=== PATIENT | male | born 1975 | race Caucasian/White ===

== ENCOUNTER 2021-02-14 10:39 | Inpatient (IN) ==
[2021-02-14] MEDS ORDERED: KETOROLAC 30 MG/ML VIAL IV ONE (11:17)
[2021-02-14] MEDS ORDERED: SODIUM CHLORIDE 0.9% 1000ML 2,000 ML IV ONE (11:17)
[2021-02-14] MEDS ORDERED: dexAMETHasone**PF** 10 MG/ML VIAL IV ONE (11:17)
[2021-02-14] MEDS ORDERED: ACETAMINOPHEN 500 MG TAB PO STA (11:17)
[2021-02-14] MEDS ORDERED: ALBUT/IPRATROP 3MG/0.5MG NEB 3 ML VIAL NEB STA (11:17)
[2021-02-14 11:27] LABS: Hemoglobin 15.9 g/dL (14.0-18.0); Immature Granulocytes # (auto) 0.01 K/uL (0.00-0.02); Immature Granulocytes % (auto) 0.2 %; Lymphocytes # (auto) 0.53 K/uL (1.2-3.4); Lymphocytes % (auto) 12.4 %; Mean Corpuscular Hemoglobin 30.1 pg (25-34); Mean Corpuscular Hgb Conc 35.3 g/dL (32-36); Mean Corpuscular Volume 85.1 fL (80-100); Mean Platelet Volume 10.5 fL (7.4-10.4); Monocytes % (auto) 4.7 %; Neutrophils # (auto) 3.55 K/uL (1.4-6.5); Neutrophils % (auto) 82.7 %; Platelet Count 147 K/uL (130-400); RDW Coefficient of Variation 12.3 % (11.5-14.5); RDW Standard Deviation 38.3 fL (36.4-46.3); Red Blood Count 5.29 M/uL (4.7-6.1); White Blood Count 4.29 K/uL (4.8-10.8)
[2021-02-14 11:37] LABS: Prothrombin Time 10.4 Seconds (9.0-12.0)
--- NOTE | 2021-02-14 11:37 | Emergency Department Note ---
History of Present Illness General Chief complaint: Shortness of Breath/Dyspnea Stated complaint: SOB, COVID + History of Present Illness This patient is a pleasant 45-year-old male who presents the emergency depa rtment for evaluation of cough, body aches and shortness of breath over the last week. The patient tested positive for Covid 6 days ago. He is currently incarcerated. He denies any sore throat, severe headache, neck pain, nausea or vomiting. They have been giving him Tylenol with minimal relief of his symptoms. The patient reports an underlying diagnosis of asthma. Home Medications Medication Instructions Recorded Confirmed Type amlodipine 10 mg tablet 10 mg PO DAILY 02/14/21 02/14/21 History atorvastatin 10 mg tablet 10 mg PO HS 02/14/21 02/14/21 History bupropion HCl 75 mg tablet 150 mg PO HS 02/14/21 02/14/21 History cholecalciferol (vitamin D3) 25 25 mcg PO DAILY 02/14/21 02/14/21 History mcg (1,000 unit) tablet (Vitamin D3) diphenhydramine HCl 25 mg capsule 25 mg PO HS 02/14/21 02/14/21 History diphenhydramine HCl 50 mg capsule 50 mg PO HS 02/14/21 02/14/21 History haloperidol 2 mg tablet 2 mg PO HS 02/14/21 02/14/21 History mirtazapine 30 mg tablet 30 mg PO HS 02/14/21 02/14/21 History prazosin 1 mg capsule 3 mg PO HS 02/14/21 02/14/21 History zinc 220 mg PO BID 02/14/21 02/14/21 History Allergies Allergy/AdvReac Type Severity Reaction Status Date / Time No Known Allergies Allergy Unverified 02/14/21 16:09 Past Med/Surg History Medical History Asthma Social History Smoking Status: Never smoker Feels Safe at Home: Yes Review of Systems A total of 10 systems reviewed and were otherwise negative Physical Exam Vital Signs Vital Signs - 24 hr 02/14/21 10:49 02/14/21 10:50 02/14/21 11:00 Temperature 38.8 C H Temperature Source Oral Pulse Rate 100 H 98 H 98 H Pulse Rate from SpO2 Sensor 99 H 98 H Respiratory Rate 28 H 29 H 29 H Respiratory Effort / Characteristics Spontaneous Labored Short of Breath Respiratory Depth Normal Respiratory Pattern Regular Tachypnea Blood Pressure 142/85 H Blood Pressure Mean 104 Pulse Oximetry 97 98 98 Oxygen Delivery Method Nasal Cannula Nasal Cannula Oxygen Flow Rate 5 5 Sepsis Recent Fever Within 48 Hours No Sepsis New/Unexplained Change in Mental Status No Sepsis Action Taken by Nursing No Action Required Oxygen Flow Rate - Titration 02/14/21 11:30 02/14/21 11:53 02/14/21 12:00 Temperature Temperature Source Pulse Rate 96 H 103 H Pulse Rate from SpO2 Sensor 96 H 104 H Respiratory Rate 28 H 20 32 H Respiratory Effort / Characteristics Spontaneous Short of Breath Respiratory Depth Respiratory Pattern Blood Pressure Blood Pressure Mean Pulse Oximetry 95 98 94 Oxygen Delivery Method Nasal Cannula Oxygen Flow Rate 5 Sepsis Recent Fever Within 48 Hours Sepsis New/Unexplained Change in Mental Status Sepsis Action Taken by Nursing Oxygen Flow Rate - Titration 02/14/21 12:30 02/14/21 13:00 02/14/21 13:13 Temperature 37.5 C Temperature Source Oral Pulse Rate 95 H 97 H Pulse Rate from SpO2 Sensor 95 H 96 H Respiratory Rate 33 H 28 H Respiratory Effort / Characteristics Respiratory Depth Respiratory Pattern Blood Pressure 124/75 Blood Pressure Mean 91 Pulse Oximetry 98 95 89 L Oxygen Delivery Method Room Air Oxygen Flow Rate 0 Sepsis Recent Fever Within 48 Hours Sepsis New/Unexplained Change in Mental Status Sepsis Action Taken by Nursing Oxygen Flow Rate - Titration 02/14/21 13:15 02/14/21 13:30 02/14/21 14:00 Temperature Temperature Source Pulse Rate 93 H 90 Pulse Rate from SpO2 Sensor 93 H 90 Respiratory Rate 24 20 Respiratory Effort / Characteristics Respiratory Depth Respiratory Pattern Blood Pressure Blood Pressure Mean Pulse Oximetry 96 96 98 Oxygen Delivery Method Nasal Cannula Oxygen Flow Rate 5 Sepsis Recent Fever Within 48 Hours Sepsis New/Unexplained Change in Mental Status Sepsis Action Taken by Nursing Oxygen Flow Rate - Titration 02/14/21 14:30 02/14/21 14:56 02/14/21 15:00 Temperature Temperature Source Pulse Rate 88 91 H Pulse Rate from SpO2 Sensor 89 90 Respiratory Rate 28 H 21 Respiratory Effort / Characteristics Respiratory Depth Respiratory Pattern Blood Pressure 142/89 H Blood Pressure Mean 106 Pulse Oximetry 97 90 91 Oxygen Delivery Method Room Air Oxygen Flow Rate 0 Sepsis Recent Fever Within 48 Hours Sepsis New/Unexplained Change in Mental Status Sepsis Action Taken by Nursing Oxygen Flow Rate - Titration 02/14/21 15:24 02/14/21 15:30 Temperature Temperature Source Pulse Rate 92 H Pulse Rate from SpO2 Sensor 93 H Respiratory Rate 28 H Respiratory Effort / Characteristics Respiratory Depth Respiratory Pattern Blood Pressure 136/88 Blood Pressure Mean 104 Pulse Oximetry 89 L 94 Oxygen Delivery Method Room Air Nasal Cannula Oxygen Flow Rate 2 Sepsis Recent Fever Within 48 Hours Sepsis New/Unexplained Change in Mental Status Sepsis Action Taken by Nursing Oxygen Flow Rate - Titration 2 See below Constitutional WD/WN, vitals as above Eyes EOM intact bilaterally ENMT Oral mucosa dry Neck trachea midline Respiratory normal respiratory effort, lungs clear to auscultation Cardiovascular RRR, no murmur, no edema Gastrointestinal (Abdomen) normal bowel sounds, soft, nontender, no hepatosplenomegaly Musculoskeletal no cyanosis or clubbing, extremities motor strength 5/5 Skin no rashes, warm and dry Neurologic Alert and oriented x3. No focal motor deficits. Psychiatric Acting appropriately Course Course Patient was seen and examined Vital signs including blood pressure were reviewed medications list was verified with patient Labs were obtained, and a saline lock was established The patient was ordered Toradol, Tylenol, and nebulizer treatment and 2 L normal saline Imaging was performed and reviewed Upon reevaluation, the patient was resting comfortably. We discussed his results. He was feeling somewhat better. The case was discussed with my supervising physician It was then discussed with the [facility] hospitalist group who kindly agreed to evaluate the patient for likely inpatient management. Administered Medications Discontinued Medications Acetaminophen (Acetaminophen 500 Mg Tab) 1,000 mg PO NOW STA Stop: 02/14/21 11:18 Last Admin: 02/14/21 11:40 Dose: 1,000 mg Documented by: [id number] Albuterol (Albut/Ipratrop 3mg/0.5mg Neb 3 Ml Vial) 3 ml NEB NOW STA Stop: 02/14/21 11:18 Last Admin: 02/14/21 11:51 Dose: 3 ml Documented by: [id number] Dexamethasone Sodium Phosphate (DexamethasonePf 10 Mg/Ml Vial) 10 mg IV NOW ONE Stop: 02/14/21 11:18 Last Admin: 02/14/21 11:42 Dose: 10 mg Documented by: [id number] Sodium Chloride (Nss 1000ml) 2,000 mls @ 999 mls/hr IV .Q2H1M ONE Stop: 02/14/21 13:17 Last Infusion: 02/14/21 13:18 Dose: 0 mls/hr Documented by: [id number] Admin: 02/14/21 11:41 Dose: 999 mls/hr Documented by: [id number] Potassium Chloride (K Blu / Wtr) 10 meq in 100 mls @ 100 mls/hr IV ONE ONE Stop: 02/14/21 15:11 Last Admin: 02/14/21 15:45 Dose: 100 mls/hr Documented by: [id number] Ceftriaxone Sodium (Rocephin) 2,000 mg in 70 mls @ 140 mls/hr IV NOW STA Stop: 02/14/21 14:42 Last Infusion: 02/14/21 15:45 Dose: 0 mls/hr Documented by: [id number] Admin: 02/14/21 14:49 Dose: 140 mls/hr Documented by: [id number] Ketorolac Tromethamine (Ketorolac 30 Mg/Ml Vial) 30 mg IV NOW ONE Stop: 02/14/21 11:18 Last Admin: 02/14/21 11:43 Dose: 30 mg Documented by: [id number] Potassium Chloride (Potassium Chloride Crtab 20 Meq Tabcr) 40 meq PO NOW STA Stop: 02/14/21 14:13 Last Admin: 02/14/21 14:45 Dose: 40 meq Documented by: [id number] Medical Decision Making Medical Records Attestation: I reviewed the patient's medical records. Home Medications Current Medication List: was personally reviewed by me Laboratory Data Attestation: I reviewed the patient's lab results. Result diagrams: 02/14/21 11:16 02/14/21 11:16 Lab Results 02/14/21 02/14/21 02/14/21 Range/Units 11:16 11:16 11:16 WBC 4.29 L (4.8-10.8) K/uL RBC 5.29 (4.7-6.1) M/uL Hgb 15.9 (14.0-18.0) g/dL Hct 45.0 (42-52) % MCV 85.1 (80-100) fL MCH 30.1 (25-34) pg MCHC 35.3 (32-36) g/dL RDW Std Deviation 38.3 (36.4-46.3) fL RDW Coeff of Jeovany 12.3 (11.5-14.5) % Plt Count 147 (130-400) K/uL MPV 10.5 H (7.4-10.4) fL Immature Gran % (Auto) 0.2 % Neut % (Auto) 82.7 % Lymph % (Auto) 12.4 % Mcdonald % (Auto) 4.7 % Eos % (Auto) 0.0 % Baso % (Auto) 0.0 % Neut # (Auto) 3.55 (1.4-6.5) K/uL Lymph # (Auto) 0.53 L (1.2-3.4) K/uL Mcdonald # (Auto) 0.20 (0.11-0.59) K/uL Eos # (Auto) 0.00 (0-0.5) K/uL Baso # (Auto) 0.00 (0-0.2) K/uL Immature Gran # (Auto) 0.01 (0.00-0.02) K/uL PT 10.4 (9.0-12.0) Seconds INR 1.0 (0.9-1.1) Sodium (136-145) mmol/L Potassium (3.5-5.1) mmol/L Chloride (98-107) mmol/L Carbon Dioxide (21-32) mmol/L Anion Gap (3-11) BUN (7-18) mg/dl Creatinine (0.6-1.4) mg/dl Est Cr Clr Drug Dosing ml/min Est GFR ( Amer) ml/min Est GFR (Non-Af Amer) ml/min BUN/Creatinine Ratio (10-20) Glucose (70-99) mg/dl Lactate (0.4-2.0) mmol/L Calcium (8.5-10.1) mg/dl Total Bilirubin (0.2-1) mg/dl AST (15-37) U/L ALT (12-78) U/L Alkaline Phosphatase (45-117) U/L Troponin I (0-0.045) ng/ml Total Protein (6.4-8.2) gm/dl Albumin (3.4-5.0) gm/dl Globulin (2.5-4.0) gm/dl Albumin/Globulin Ratio (0.9-2) Procalcitonin 0.08 (0-0.5) ng/ml Urine Color Urine Appearance (Clear) Urine pH (4.5-7.5) Ur Specific [place] (1.000-1.030) Urine Protein (Negative) Urine Glucose (UA) (Negative) Urine Ketones (Negative) Urine Blood (Negative) Urine Nitrite (Negative) Urine Bilirubin (Negative) Urine Urobilinogen (Negative) Ur Leukocyte Esterase (Negative) Urine WBC (Auto) (0-5) /hpf Urine RBC (Auto) (0-4) /hpf U Hyaline Cast (Auto) (0-5) /lpf U Epithel Cells (Auto) (0-5) /lpf Urine Bacteria (Auto) (Negative) Ur Renal Epithelial Cell COVID-19 Eval Order SARS-CoV-2 (PCR) (Negative) 02/14/21 02/14/21 02/14/21 Range/Units 11:16 11:16 11:46 WBC (4.8-10.8) K/uL RBC (4.7-6.1) M/uL Hgb (14.0-18.0) g/dL Hct (42-52) % MCV (80-100) fL MCH (25-34) pg MCHC (32-36) g/dL RDW Std Deviation (36.4-46.3) fL RDW Coeff of Jeovany (11.5-14.5) % Plt Count (130-400) K/uL MPV (7.4-10.4) fL Immature Gran % (Auto) % Neut % (Auto) % Lymph % (Auto) % Mcdonald % (Auto) % Eos % (Auto) % Baso % (Auto) % Neut # (Auto) (1.4-6.5) K/uL Lymph # (Auto) (1.2-3.4) K/uL Mcdonald # (Auto) (0.11-0.59) K/uL Eos # (Auto) (0-0.5) K/uL Baso # (Auto) (0-0.2) K/uL Immature Gran # (Auto) (0.00-0.02) K/uL PT (9.0-12.0) Seconds INR (0.9-1.1) Sodium 135 L (136-145) mmol/L Potassium 3.1 L (3.5-5.1) mmol/L Chloride 98 (98-107) mmol/L Carbon Dioxide 28 (21-32) mmol/L Anion Gap 9.0 (3-11) BUN 10 (7-18) mg/dl Creatinine 1.29 (0.6-1.4) mg/dl Est Cr Clr Drug Dosing 92.6 ml/min Est GFR ( Amer) 76.0 ml/min Est GFR (Non-Af Amer) 65.6 ml/min BUN/Creatinine Ratio 8.0 L (10-20) Glucose 112 H (70-99) mg/dl Lactate 1.7 (0.4-2.0) mmol/L Calcium 8.6 (8.5-10.1) mg/dl Total Bilirubin 0.6 (0.2-1) mg/dl AST 97 H (15-37) U/L ALT 72 (12-78) U/L Alkaline Phosphatase 89 (45-117) U/L Troponin I < 0.015 (0-0.045) ng/ml Total Protein 7.7 (6.4-8.2) gm/dl Albumin 3.5 (3.4-5.0) gm/dl Globulin 4.2 H (2.5-4.0) gm/dl Albumin/Globulin Ratio 0.8 L (0.9-2) Procalcitonin (0-0.5) ng/ml Urine Color Urine Appearance (Clear) Urine pH (4.5-7.5) Ur Specific [place] (1.000-1.030) Urine Protein (Negative) Urine Glucose (UA) (Negative) Urine Ketones (Negative) Urine Blood (Negative) Urine Nitrite (Negative) Urine Bilirubin (Negative) Urine Urobilinogen (Negative) Ur Leukocyte Esterase (Negative) Urine WBC (Auto) (0-5) /hpf Urine RBC (Auto) (0-4) /hpf U Hyaline Cast (Auto) (0-5) /lpf U Epithel Cells (Auto) (0-5) /lpf Urine Bacteria (Auto) (Negative) Ur Renal Epithelial Cell COVID-19 Eval Order Covid19 at [facility] SARS-CoV-2 (PCR) (Negative) 02/14/21 02/14/21 Range/Units 11:46 13:00 WBC (4.8-10.8) K/uL RBC (4.7-6.1) M/uL Hgb (14.0-18.0) g/dL Hct (42-52) % MCV (80-100) fL MCH (25-34) pg MCHC (32-36) g/dL RDW Std Deviation (36.4-46.3) fL RDW Coeff of Jeovany (11.5-14.5) % Plt Count (130-400) K/uL MPV (7.4-10.4) fL Immature Gran % (Auto) % Neut % (Auto) % Lymph % (Auto) % Mcdonald % (Auto) % Eos % (Auto) % Baso % (Auto) % Neut # (Auto) (1.4-6.5) K/uL Lymph # (Auto) (1.2-3.4) K/uL Mcdonald # (Auto) (0.11-0.59) K/uL Eos # (Auto) (0-0.5) K/uL Baso # (Auto) (0-0.2) K/uL Immature Gran # (Auto) (0.00-0.02) K/uL PT (9.0-12.0) Seconds INR (0.9-1.1) Sodium (136-145) mmol/L Potassium (3.5-5.1) mmol/L Chloride (98-107) mmol/L Carbon Dioxide (21-32) mmol/L Anion Gap (3-11) BUN (7-18) mg/dl Creatinine (0.6-1.4) mg/dl Est Cr Clr Drug Dosing ml/min Est GFR ( Amer) ml/min Est GFR (Non-Af Amer) ml/min BUN/Creatinine Ratio (10-20) Glucose (70-99) mg/dl Lactate (0.4-2.0) mmol/L Calcium (8.5-10.1) mg/dl Total Bilirubin (0.2-1) mg/dl AST (15-37) U/L ALT (12-78) U/L Alkaline Phosphatase (45-117) U/L Troponin I (0-0.045) ng/ml Total Protein (6.4-8.2) gm/dl Albumin (3.4-5.0) gm/dl Globulin (2.5-4.0) gm/dl Albumin/Globulin Ratio (0.9-2) Procalcitonin (0-0.5) ng/ml Urine Color Yellow Urine Appearance Cloudy A (Clear) Urine pH 8.5 H (4.5-7.5) Ur Specific [place] 1.011 (1.000-1.030) Urine Protein 1+ H (Negative) Urine Glucose (UA) Negative (Negative) Urine Ketones 2+ H (Negative) Urine Blood 2+ H (Negative) Urine Nitrite Positive A (Negative) Urine Bilirubin Negative (Negative) Urine Urobilinogen Negative (Negative) Ur Leukocyte Esterase Trace H (Negative) Urine WBC (Auto) 5-10 H (0-5) /hpf Urine RBC (Auto) 0-4 (0-4) /hpf U Hyaline Cast (Auto) 1-5 (0-5) /lpf U Epithel Cells (Auto) >30 H (0-5) /lpf Urine Bacteria (Auto) 1+ H (Negative) Ur Renal Epithelial Cell Not Reportable COVID-19 Eval Order SARS-CoV-2 (PCR) POSITIVE A* (Negative) Imaging Data Attestation: I personally reviewed and interpreted this imaging study as follows: Radiologist's Impression: Chest X-Ray 02/14/21 11:18 XR chest 1V portable CLINICAL HISTORY: syncope TECHNIQUE: Single frontal radiograph of the chest was obtained. Comparison: None available at the time of this dictation. FINDINGS: No lines and tubes are seen. The cardiomediastinal silhouette is normal. Lungs are underinflated. Left lower lung airspace opacities are seen. No evidence of pleural effusion or pneumothorax. IMPRESSION: No acute chest disease. ACT 112: Negative or not required by law. Electronically signed by: Mahendra New M.D. 02/14/2021 12:17 PM ECG Data Attestation: I personally reviewed and interpreted this ECG as follows: Additional Comments: EKG reveals normal sinus rhythm with a rate of 96 bpm. QTc is 419 MS. Q waves noted in V1. No ST elevation or depression noted. No prior for comparison. MDM Narrative Differential diagnosis: Bronchitis, viral versus bacterial pneumonia, acute respiratory failure, cardiac arrhythmia, myocarditis, dehydration, electrolyte abnormality, among others were considered This patient is a 45-year-old male who presents emergency department via private vehicle for evaluation of flulike symptoms. He has tested positive for Covid. On exam, the patient was hypoxic and febrile. He was also slightly tachycardic. His lungs auscultated clear. His labs revealed mild leukopenia, consistent with Covid. Mild elevation in AST. Other LFTs within normal limits. Chest x- ray was performed. No acute findings noted. The patient was treated with steroids, fluids and a nebulizer treatment. Due to the patient's hypoxia, it was felt appropriate to consult the hospitalist service. They kindly agreed to evaluate the patient for likely inpatient management. The patient remained stable in the emergency department. Of note, the patient was also complaining of urinary symptoms. Urine appears to be infected. The patient was given 1 dose of Rocephin Impression & Plan COVID, Acute respiratory failure Discharge Plan Visit Data Chief Complaint: Shortness of Breath/Dyspnea Stated Complaint: SOB, COVID + ED Provider: Baltazar Lisa ED Midlevel Provider: Shaneka Mcwilliams Discharge Problem: COVID, Acute respiratory failure Patient Disposition: Home - Self-Care Condition: Fair Forms Stand Alone Forms: [facility], Virtual Emergency Department, Important Visit Information Prescriptions Prescriptions: No Action cholecalciferol (vitamin D3) [Vitamin D3] 25 mcg (1,000 unit) Tablet 25 mcg PO DAILY RF: 0 zinc 220 mg PO BID RF: 0 diphenhydramine HCl 50 mg Capsule 50 mg PO HS RF: 0 diphenhydramine HCl 25 mg Capsule 25 mg PO HS RF: 0 atorvastatin 10 mg Tablet 10 mg PO HS RF: 0 prazosin 1 mg Capsule 3 mg PO HS RF: 0 amlodipine 10 mg Tablet 10 mg PO DAILY RF: 0 mirtazapine 30 mg Tablet 30 mg PO HS RF: 0 bupropion HCl 75 mg Tablet 150 mg PO HS RF: 0 haloperidol [Haldol] 2 mg Tablet 2 mg PO HS RF: 0 Referrals Referrals: Constantino ESCOBEDO [Primary Care Provider] -
[2021-02-14 11:45] LABS: Alanine Aminotransferase 72 U/L (12-78); Albumin Level 3.5 gm/dl (3.4-5.0); Aspartate Aminotransferase 97 U/L (15-37); Blood Urea Nitrogen 10 mg/dl (7-18); Calcium 8.6 mg/dl (8.5-10.1); Carbon Dioxide 28 mmol/L (21-32); Chloride 98 mmol/L (98-107); Creatinine Clr Calc Pharmacy 92.6 ml/min; Est GFR (Non-African American) 65.6 ml/min; Glucose 112 mg/dl (70-99); Potassium 3.1 mmol/L (3.5-5.1); Sodium 135 mmol/L (136-145)
[2021-02-14 11:50] LABS: Albumin Globulin Ratio 0.8 (0.9-2); Alkaline Phosphatase 89 U/L (45-117); Bilirubin,Total 0.6 mg/dl (0.2-1); Globulin 4.2 gm/dl (2.5-4.0); Total Protein 7.7 gm/dl (6.4-8.2); Troponin I < 0.015 ng/ml (0-0.045)
--- NOTE | 2021-02-14 12:19 | XRay Report ---
XR chest 1V portable CLINICAL HISTORY: syncope TECHNIQUE: Single frontal radiograph of the chest was obtained. Comparison: None available at the time of this dictation. FINDINGS: No lines and tubes are seen. The cardiomediastinal silhouette is normal. Lungs are underinflated. Lef t lower lung airspace opacities are seen. No evidence of pleural effusion or pneumothorax. IMPRESSION: No acute chest disease. ACT 112: Negative or not required by law. Electronically signed by: Mahendra New M.D. 02/14/2021 12:17 PM
[2021-02-14 13:23] LABS: Appearance Urine Cloudy (Clear); Bilirubin Urine Negative (Negative); Blood Urine 2+ (Negative); Color Urine Yellow; Epithelial Cell Urine Auto >30 /lpf (0-5); Glucose Urine UA Negative (Negative); Ketones Urine 2+ (Negative); Leukocyte Esterase Urine Trace (Negative); Nitrite Urine Positive (Negative); RBC Urine Automated 0-4 /hpf (0-4); Specific Gravity Urine 1.011 (1.000-1.030); Urobilinogen Urine Negative (Negative); pH Urine 8.5 (4.5-7.5)
[2021-02-14 13:25] LABS: Protein Urine 1+ (Negative)
[2021-02-14 13:39] LABS: Bacteria Urine Automated 1+ (Negative)
[2021-02-14] MEDS ORDERED: POTASSIUM CHLORIDE CRTAB 20 MEQ TABCR PO STA (14:12)
[2021-02-14] MEDS ORDERED: POTASSIUM CHLORIDE / WTR 10 MEQ/100 ML PLCT IV ONE (14:12)
[2021-02-14] MEDS ORDERED: cefTRIAXone SODIUM 2,000 MG/70 ML BAG IV STA (14:13)
--- NOTE | 2021-02-14 15:21 | History & Physical Report ---
Date of Service February 14, 2021 Assessment & Plan (1) COVID: Plan: Shortness of breath 2/2 COVID PNA -5L NC oxygen req on admission Covid positive 6 days of symptoms CXR: No acute findings Received dexamethasone 10 mg in ER Troponin negative Pro-Myke negative AST elevated to 97, ALT 72 Discussed risk/benefits of remdesivir. Patient hypoxic req NC, on day 6, trace LFT elevation less than 3 times normal. Will treat with remdesivir. Follow LFTs daily. Covid DVT prophylaxis (2) Acute respiratory failure: Plan: see above (3) Asthma: Plan: Patient with albuterol as needed [employer] DuoNebs as needed for wheezing (4) Anxiety: Plan: Anxiety/mood disorder probation for "psych stuff " Continue home Haldol 2 mg p.o. nightly Continue home mirtazapine 30 mg p.o. nightly Continue prazosin 3 mg p.o. nightly Continue bupropion 150 mg p.o. nightly (5) HLD (hyperlipidemia): Plan: Continue atorvastatin 10 mg p.o. nightly (6) HTN (hypertension): Plan: Continue amlodipine 10 mg p.o. daily (7) Hypokalemia: Plan: Hypokalemia 3.1 Magnesium pending Repleted with 40 M EQ oral, and K rider prior to admission BMP daily (8) Dysuria: Plan: Patient reports discomfort and having to use a little pressure for urination Also endorses a feeling of having to strain since being ill Question urinary retention from anticholinergic effect, hold evening Benadryl 75 mg nightly Bladder scan qshift UA with epithelial cells, 1+ bacteria, leukocyte esterase and nitrates. Treat as UTI with Rocephin empiric, UC pending Plan: DVT prophylaxis: Covid Lovenox dosing Diet: Regular Disposition: Med/telemetry QT monitoring History of Present Illness Primary Care Provider: FANNY Meeks 45-year-old male who presents with cough, body aches, shortness of breath for 1 week. Positive for Covid 6 days ago. Satting 90% on room air. Underlying diagnosis of asthma. First Covid symptoms 6 days ago. Endorses SoB. No chest pain or chest pressure. Lost sense of taste and smell then got it back 2-3 days ago. Hx of asthma, uses albuterol PRN rarely, needed in the last week. Progressively more dyspneic over the last 3 to 4 days. Denies chest pain, chest pressure, palpitations, fever, chills, syncope, presyncope. Denies abdominal pain. Endorses dysuria and a feeling of having to press very hard to urinate in the last few days. Denies hematuria. No history of blood clots. Medications reviewed as below. Medical History: Reviewed Medications: Reviewed. HTN, not sure of meds. HLD not sure of meds. +Psych meds (haldol, wellbutrin, minipress). Surgical History: Reviewed Allergies: Reviewed Social History: No tobacco product use, no etoh, no rec drug use. Code Status: Allergies Allergy/AdvReac Type Severity Reaction Status Date / Time No Known Allergies Allergy Unverified 02/14/21 16:09 Home Medications Medication Instructions Recorded Confirmed Type amlodipine 10 mg tablet 10 mg PO DAILY 02/14/21 02/14/21 History atorvastatin 10 mg tablet 10 mg PO HS 02/14/21 02/14/21 History bupropion HCl 75 mg tablet 150 mg PO HS 02/14/21 02/14/21 History cholecalciferol (vitamin D3) 25 25 mcg PO DAILY 02/14/21 02/14/21 History mcg (1,000 unit) tablet (Vitamin D3) diphenhydramine HCl 25 mg capsule 25 mg PO HS 02/14/21 02/14/21 History diphenhydramine HCl 50 mg capsule 50 mg PO HS 02/14/21 02/14/21 History haloperidol 2 mg tablet 2 mg PO HS 02/14/21 02/14/21 History mirtazapine 30 mg tablet 30 mg PO HS 02/14/21 02/14/21 History prazosin 1 mg capsule 3 mg PO HS 02/14/21 02/14/21 History zinc 220 mg PO BID 02/14/21 02/14/21 History Past Med/Surg History Medical History (Updated 02/14/21 @ 18:43 by Thai Godfrey MD) Anxiety Asthma HLD (hyperlipidemia) HTN (hypertension) Mood disorder Social History (Updated 02/14/21 @ 18:44 by Thai Godfrey MD) Smoking Status: Never smoker Hx Alcohol Use: No Hx Substance Use: No Feels Safe at Home: Yes Review of Systems Review of Systems: All systems reviewed & are unremarkable except as noted in Subjective Physical Exam Physical Exam: General: A&Ox3. NAD. Cooperative. Appears fatigued. On oxygen mask. HEENT: Atraumatic, normocephalic. Pupils equal and reactive to light and accommodation. Extraocular movements intact without nystagmus. Pulm: CTAB A&P. -wheezes, -rales, -rhonchi. Symmetrical chest rise. No increase work of breathing. No respiratory distress. Cardiac: RRR, -mrg. Radial pulses intact and symmetrical. Abdominal: Nontender, nondistended, soft. BS present. Extremities: Warm, dry. Moving all extremities equally. Sensation to soft touch intact in hands and feet without asymmetry. Results & Data Results & Data ([facility]) Vital Signs (Past 12 Hours) Vital Signs Temp Pulse Resp BP Pulse Ox 02/14/21 14:56 90 02/14/21 14:30 88 28 H 142/89 H 97 02/14/21 14:00 90 20 98 02/14/21 13:30 93 H 24 96 02/14/21 13:15 96 02/14/21 13:13 37.5 C 89 L 02/14/21 13:00 97 H 28 H 95 02/14/21 12:30 95 H 33 H 124/75 98 02/14/21 12:00 103 H 32 H 94 02/14/21 11:53 20 98 02/14/21 11:30 96 H 28 H 95 02/14/21 11:00 98 H 29 H 98 02/14/21 10:50 98 H 29 H 98 02/14/21 10:49 38.8 C H 100 H 28 H 142/85 H 97 PG Care Time/CCT Total # of Minutes Spent Total Time Spent with Patient: Total time spent is greater than 50% in coordination of care (as documented) at patient's floor/unit and/or counseling patient: Coding Level of Care Code 74153 Initial Inpt Care Lvl 2 Diagnoses COVID U07.1 Acute respiratory failure J96.00 Asthma J45.909 Anxiety F41.9 HLD (hyperlipidemia) E78.5 HTN (hypertension) I10 Hypokalemia E87.6 Dysuria R30.0
[2021-02-14] MEDS ORDERED: REMDESIVIR 200 MG in SODIUM CHLORIDE 0.9% 210 ML IV STA (18:36)
[2021-02-14] MEDS ORDERED: ACETAMINOPHEN 325 MG TAB PO PRN (22:10)
[2021-02-14] MEDS: SODIUM CHLORIDE 0.9% 10ML FLUSH IV SCH (23:10)
[2021-02-14] MEDS: ENOXAPARIN INJ 40 MG/0.4 ML SYR SQ SCH (23:10)
[2021-02-14] MEDS: buPROPion HCl 75 MG TABLET PO SCH (23:11)
[2021-02-14] MEDS: diphenhydrAMINE Capsule 25 MG CAP PO SCH (23:11)
[2021-02-14] MEDS: PRAZOSIN HCL 1 MG CAP PO SCH (23:11)
[2021-02-14] MEDS: MIRTAZAPINE TAB 15 MG TAB PO SCH (23:11)
[2021-02-14] MEDS: ATORVASTATIN 10 MG TAB PO SCH (23:12)
[2021-02-14] MEDS: haloperidoL 1 MG TAB PO SCH (23:12)
--- NOTE | 2021-02-15 05:42 | Electrocardiogram Report ---
Test Reason : Blood Pressure : / mmHG Vent. Rate : 096 BPM Atrial Rate : 096 BPM P-R Int : 124 ms QRS Dur : 084 ms QT Int : 332 ms P-R-T Axes : 002 -18 -30 degrees QTc Int : 419 ms Poor data quality, interpretation may be adversely affected Normal sinus rhythm Nonspecific T wave abnormality No previous ECGs available Confirmed by Bipin Adam ([id number]) on 02/15/2021 5:41:47 AM Referred By: Constantino ESCOBEDO Confirmed By:Bipin Adam
[2021-02-15 06:34] LABS: Hematocrit (blood only) 41.7 % (42-52); Hemoglobin 14.4 g/dL (14.0-18.0); Immature Granulocytes # (auto) 0.01 K/uL (0.00-0.02); Immature Granulocytes % (auto) 0.3 %; Lymphocytes % (auto) 14.9 %; Mean Corpuscular Hemoglobin 29.8 pg (25-34); Mean Corpuscular Hgb Conc 34.5 g/dL (32-36); Mean Corpuscular Volume 86.3 fL (80-100); Mean Platelet Volume 10.9 fL (7.4-10.4); Monocytes # (auto) 0.21 K/uL (0.11-0.59); Monocytes % (auto) 6.3 %; Neutrophils # (auto) 2.64 K/uL (1.4-6.5); Neutrophils % (auto) 78.5 %; Platelet Count 153 K/uL (130-400); RDW Coefficient of Variation 12.7 % (11.5-14.5); RDW Standard Deviation 40.5 fL (36.4-46.3); Red Blood Count 4.83 M/uL (4.7-6.1); White Blood Count 3.36 K/uL (4.8-10.8)
[2021-02-15 07:07] LABS: Albumin Globulin Ratio 0.7 (0.9-2); Albumin Level 2.8 gm/dl (3.4-5.0); BUN Creatinine Ratio 13.7 (10-20); Bilirubin,Total 0.2 mg/dl (0.2-1); Calcium 8.2 mg/dl (8.5-10.1); Est GFR (African American) 112.9 ml/min; Est GFR (Non-African American) 97.4 ml/min; Globulin 4.3 gm/dl (2.5-4.0); Potassium 3.9 mmol/L (3.5-5.1); Total Protein 7.1 gm/dl (6.4-8.2)
[2021-02-15] MEDS: dexAMETHasone 6 MG in SYRINGE 0 ML IV SCH (09:02)
[2021-02-15] MEDS: ENOXAPARIN INJ 40 MG/0.4 ML SYR SQ SCH ×2 (09:02→20:46)
[2021-02-15] MEDS: amLODIPine BESYLATE 5 MG TAB PO SCH (09:02)
--- NOTE | 2021-02-15 13:10 | Hospitalist Progress Note ---
Date of Service February 15, 2021 Assessment & Plan (1) Pneumonia due to COVID-19 virus: Plan: LLL on x-ray and on exam. Day #2 IV dexamethasone 6mg. Day #2 Remdesivir. Add incentive addis. Add flutter valve. Add mucinex. Proning discussed & encouraged. Is at risk of disease progression - he is about 1 week into his illness. O2 to maintain sats >92%. (2) Acute respiratory failure with hypoxia: Plan: 2nd #1. No complicating CHF. (3) UTI (urinary tract infection): Plan: cont rocephin. await culture. consider GC/Chlamydia testing. ideally needs AQUILES to r/o prostatitis. add pyridium 100mg TID. change prazosin to flomax. if PVRs cont to be >250cc then place rand. check PVRs qshift. (4) Asthma: Plan: no significant wheezing at this time (5) HTN (hypertension): Plan: cont home meds (6) HLD (hyperlipidemia): Plan: cont statin (7) Anxiety: Plan: cont home meds (8) Dysuria: Plan: add pyridium 2nd UTI (9) DVT prophylaxis: Plan: lovenox 40mg BID Plan: due to Remdesivir check ast/alt in am due to elevated ast also check CPK Admission and Anticipated Discharge Date Admission Date: February 14, 2021 Subjective pt's main complaint is that of dysuria and difficulty voiding have frequency with production of small amts of urine PVR was >250cc he continues with cough/fatigue but reports eating well mild CARDENAS pt reports he was vaccinated against COVID earlier this year Review of Systems Review of Systems: gen - no fevers but fatigued HENT - no loss of taste or smell pulm - 1 episode of streaky/small volume hemoptysis CV - no chest pain - denies purulent discharge Physical Exam Physical Exam: gen - looks ill but nontoxic, no distress mouth - MM dry neck - no JVD heart - RRR, s1 s2, no murmur lungs - mild rales L base, no wheeze, no increased work of breathing abd - soft, mildly tender suprapubic region, ND, ?splenomegaly ext - no edema, pulses 2+ b/l psych - a/o x 3, normal affect Results & Data Results & Data ([facility]) Vital Signs (Past 12 Hours) Vital Signs Temp Pulse Resp BP Pulse Ox 02/15/21 11:40 36.8 C 99 H 18 118/65 95 02/15/21 07:28 37.0 C 92 H 18 114/77 94 02/15/21 05:29 36.6 C 87 18 111/76 97 Laboratory Results Laboratory Results - last 24 hr 02/15/21 02/15/21 02/15/21 05:44 05:44 06:15 WBC 3.36 L RBC 4.83 Hgb 14.4 Hct 41.7 L MCV 86.3 MCH 29.8 MCHC 34.5 RDW Std Deviation 40.5 RDW Coeff of Jeovany 12.7 Plt Count 153 MPV 10.9 H Immature Gran % (Auto) 0.3 Neut % (Auto) 78.5 Lymph % (Auto) 14.9 [place] % (Auto) 6.3 Eos % (Auto) 0.0 Baso % (Auto) 0.0 Neut # (Auto) 2.64 Lymph # (Auto) 0.50 L [place] # (Auto) 0.21 Eos # (Auto) 0.00 Baso # (Auto) 0.00 Immature Gran # (Auto) 0.01 Sodium 140 Potassium 3.9 D Chloride 108 H Carbon Dioxide 23 Anion Gap 9.0 BUN 13 Creatinine 0.93 D Est Cr Clr Drug Dosing 127.0 Est GFR ( Amer) 112.9 Est GFR (Non-Af Amer) 97.4 BUN/Creatinine Ratio 13.7 Glucose 127 H Calcium 8.2 L Total Bilirubin 0.2 AST 65 H ALT 62 Alkaline Phosphatase 75 Total Protein 7.1 Albumin 2.8 L Globulin 4.3 H Albumin/Globulin Ratio 0.7 L Nasal Screen MRSA (PCR) Negative PG Care Time/CCT Total # of Minutes Spent Total Time Spent with Patient: Total time spent is greater than 50% in coordination of care (as documented) at patient's floor/unit and/or counseling patient: Coding Level of Care Code 04278 Subseq Hosp Care Lvl 3 Diagnoses Pneumonia due to COVID-19 virus U07.1; J12.82 Acute respiratory failure with hypoxia J96.01 UTI (urinary tract infection) N39.0 Asthma J45.909 HTN (hypertension) I10 HLD (hyperlipidemia) E78.5 Anxiety F41.9 Dysuria R30.0 DVT prophylaxis Z29.9
[2021-02-15] MEDS ORDERED: cefTRIAXone SODIUM 2,000 MG in DEXTROSE 5% 50 ML IV SCH (14:00)
[2021-02-15] MEDS: PHENAZOPYRIDINE HCL 100 MG TAB PO SCH ×2 (14:48→20:47)
[2021-02-15] MEDS: cefTRIAXone SODIUM 2,000 MG in DEXTROSE 5% 50 ML IV SCH (18:29)
[2021-02-15] MEDS ORDERED: cefTRIAXone SODIUM 1,000 MG in DEXTROSE 5% 50 ML IV SCH (18:45)
[2021-02-15] MEDS: REMDESIVIR 100 MG in SODIUM CHLORIDE 0.9% 230 ML IV SCH (20:46)
[2021-02-15] MEDS: buPROPion HCl 75 MG TABLET PO SCH (20:47)
[2021-02-15] MEDS: diphenhydrAMINE Capsule 25 MG CAP PO SCH (20:47)
[2021-02-15] MEDS: MIRTAZAPINE TAB 15 MG TAB PO SCH (20:48)
[2021-02-15] MEDS: PRAZOSIN HCL 1 MG CAP PO SCH (20:48)
[2021-02-15] MEDS: SODIUM CHLORIDE 0.9% 10ML FLUSH IV SCH (20:49)
[2021-02-15] MEDS: ATORVASTATIN 10 MG TAB PO SCH (20:49)
[2021-02-15] MEDS: guaiFENesin 600 MG TABCR PO SCH (20:49)
[2021-02-15] MEDS: haloperidoL 1 MG TAB PO SCH (20:49)
[2021-02-16] MEDS: TAMSULOSIN HCL 0.4 MG CAP PO SCH ×2 (01:11→20:33)
[2021-02-16 06:09] LABS: Hematocrit (blood only) 38.8 % (42-52); Hemoglobin 13.2 g/dL (14.0-18.0); Lymphocytes # (auto) 0.69 K/uL (1.2-3.4); Lymphocytes % (auto) 14.5 %; Mean Corpuscular Hemoglobin 29.3 pg (25-34); Mean Corpuscular Volume 86.2 fL (80-100); Mean Platelet Volume 10.4 fL (7.4-10.4); Monocytes % (auto) 4.2 %; Neutrophils # (auto) 3.86 K/uL (1.4-6.5); Neutrophils % (auto) 81.3 %; Platelet Count 174 K/uL (130-400); RDW Standard Deviation 41.5 fL (36.4-46.3); White Blood Count 4.75 K/uL (4.8-10.8)
[2021-02-16 07:19] LABS: BUN Creatinine Ratio 12.9 (10-20); Calcium 8.1 mg/dl (8.5-10.1); Creatinine Clr Calc Pharmacy 131.5 ml/min; Est GFR (African American) 117.5 ml/min; Est GFR (Non-African American) 101.4 ml/min; Potassium 3.3 mmol/L (3.5-5.1)
[2021-02-16] MEDS: ENOXAPARIN INJ 40 MG/0.4 ML SYR SQ SCH ×2 (08:03→20:33)
[2021-02-16] MEDS: guaiFENesin 600 MG TABCR PO SCH ×2 (08:03→20:33)
[2021-02-16] MEDS: dexAMETHasone 6 MG in SYRINGE 0 ML IV SCH (08:03)
[2021-02-16] MEDS: amLODIPine BESYLATE 5 MG TAB PO SCH (08:04)
[2021-02-16] MEDS ORDERED: SODIUM CHLORIDE 0.9% 1000ML 1,000 ML IV SCH (09:30)
[2021-02-16] MEDS: POTASSIUM CHLORIDE CRTAB 20 MEQ TABCR PO SCH ×3 (11:08→20:33)
[2021-02-16] MEDS: PHENAZOPYRIDINE HCL 100 MG TAB PO SCH ×3 (11:09→20:34)
[2021-02-16] MEDS: buPROPion HCl 75 MG TABLET PO SCH (20:33)
[2021-02-16] MEDS: diphenhydrAMINE Capsule 25 MG CAP PO SCH (20:33)
[2021-02-16] MEDS: ATORVASTATIN 10 MG TAB PO SCH (20:34)
[2021-02-16] MEDS: haloperidoL 1 MG TAB PO SCH (20:34)
[2021-02-16] MEDS: REMDESIVIR 100 MG in SODIUM CHLORIDE 0.9% 230 ML IV SCH (20:35)
[2021-02-16] MEDS: SODIUM CHLORIDE 0.9% 10ML FLUSH IV SCH (20:37)
[2021-02-16] MEDS: cefTRIAXone SODIUM 2,000 MG in DEXTROSE 5% 50 ML IV SCH (21:18)
--- NOTE | 2021-02-16 21:55 | Hospitalist Progress Note ---
Date of Service February 16, 2021 Assessment & Plan (1) Pneumonia due to COVID-19 virus: Plan: Stable, O2 requirement unchanged. LLL on x-ray and on exam. Day #3 IV dexamethasone 6mg. Day #3 Remdesivir. Cont incentive addis, flutter valve, mucinex, and self-proning. He is about 1 week to 10 days into his illness. O2 to maintain sats >92%. (2) Acute respiratory failure with hypoxia: Plan: 2nd #1. No complicating CHF. Cont lovenox for DVT proph. (3) Rhabdomyolysis due to COVID-19: Plan: mild. CPK >1000. Isotonic fluid x 1 liter. Repeat CPK am. (4) UTI (urinary tract infection): Plan: culture negative. however, given his symptoms & severe urinary retention there is definitely a UTI - likely prostatitis. changed prazosin to flomax. cont rand. needs AQUILES - will perform tomorrow. cont rocephin -- consider changing to PO keflex in 2-3 days. (5) Asthma: Plan: no significant wheezing at this time (6) HTN (hypertension): Plan: cont home meds stable (7) HLD (hyperlipidemia): Plan: cont statin (8) Anxiety: Plan: cont home meds (9) Dysuria: Plan: improved s/p rand and s/p pyridium (10) DVT prophylaxis: Plan: lovenox 40mg BID Admission and Anticipated Discharge Date Admission Date: February 14, 2021 Subjective pt had significant urinary retention last pm bladder scan for >700cc (which was a PVR) rand placed; immediate return of 650cc per nursing documentation pt states that suprapubic pain/pressure resolved dysuria resolved he overall feels better today breathing improved he is self-proning diligently cough improved eating well denies new complaints tele wnl overnight Review of Systems Review of Systems: gen - fatigue improving; no fevers/no chills CV - no chest pain or orthopnea pulm - no hemoptysis (resolved); mild CAREDNAS GI - no abd pain, nausea or emesis; diarrhea resolved Physical Exam Physical Exam: gen - looks better today, NAD, no respiratory distress mouth - MM less dry today neck - no JVD heart - RRR, s1 s2, no murmur lungs - mild rales L base - no change, no wheeze, no increased work of breathing; airation improved overall abd - soft, no further distension; no suprapubic pain today; BS+ ext - no edema, pulses 2+ b/l psych - a/o x 3, normal affect Results & Data Results & Data ([facility]) Vital Signs (Past 12 Hours) Vital Signs Temp Pulse Pulse Resp BP Pulse Ox 02/16/21 19:39 36.8 C 89 18 139/81 87 L 02/16/21 16:00 88 02/16/21 15:42 36.6 C 88 18 143/78 H 90 02/16/21 12:04 37.4 C 89 18 115/90 94 Laboratory Results Laboratory Results - last 24 hr 02/16/21 02/16/21 05:30 05:30 WBC 4.75 L RBC 4.50 L Hgb 13.2 L Hct 38.8 L MCV 86.2 MCH 29.3 MCHC 34.0 RDW Std Deviation 41.5 RDW Coeff of Jeovany 13.0 Plt Count 174 MPV 10.4 Immature Gran % (Auto) 0.0 Neut % (Auto) 81.3 Lymph % (Auto) 14.5 [place] % (Auto) 4.2 Eos % (Auto) 0.0 Baso % (Auto) 0.0 Neut # (Auto) 3.86 Lymph # (Auto) 0.69 L [place] # (Auto) 0.20 Eos # (Auto) 0.00 Baso # (Auto) 0.00 Immature Gran # (Auto) 0.00 Sodium 139 Potassium 3.3 L D Chloride 106 Carbon Dioxide 27 Anion Gap 6.0 BUN 12 Creatinine 0.90 Est Cr Clr Drug Dosing 131.5 Est GFR ( Amer) 117.5 Est GFR (Non-Af Amer) 101.4 BUN/Creatinine Ratio 12.9 Glucose 112 H Calcium 8.1 L AST 50 H ALT 58 Total Creatine Kinase 1224 H PG Care Time/CCT Total # of Minutes Spent Total Time Spent with Patient: Total time spent is greater than 50% in coordination of care (as documented) at patient's floor/unit and/or counseling patient: Coding Level of Care Code 35770 Subseq Hosp Care Lvl 2 Diagnoses Pneumonia due to COVID-19 virus U07.1; J12.82 Acute respiratory failure with hypoxia J96.01 UTI (urinary tract infection) N39.0 Asthma J45.909 HTN (hypertension) I10 HLD (hyperlipidemia) E78.5 Anxiety F41.9 Dysuria R30.0 DVT prophylaxis Z29.9 Rhabdomyolysis due to COVID-19 U07.1; M62.82
[2021-02-16] MEDS: MIRTAZAPINE TAB 15 MG TAB PO SCH (21:56)
[2021-02-17 08:20] LABS: BUN Creatinine Ratio 12.3 (10-20); Calcium 7.9 mg/dl (8.5-10.1); Creatinine Clr Calc Pharmacy 136.1 ml/min; Est GFR (African American) 119.1 ml/min; Est GFR (Non-African American) 102.8 ml/min; Magnesium 2.6 mg/dl (1.8-2.4); Potassium 3.6 mmol/L (3.5-5.1)
[2021-02-17] MEDS: guaiFENesin 600 MG TABCR PO SCH ×2 (08:46→20:56)
[2021-02-17] MEDS: POTASSIUM CHLORIDE CRTAB 20 MEQ TABCR PO SCH ×3 (08:46→20:57)
[2021-02-17] MEDS: amLODIPine BESYLATE 5 MG TAB PO SCH (08:46)
[2021-02-17] MEDS: PHENAZOPYRIDINE HCL 100 MG TAB PO SCH ×3 (08:46→20:57)
[2021-02-17] MEDS: ENOXAPARIN INJ 40 MG/0.4 ML SYR SQ SCH ×2 (08:47→20:57)
[2021-02-17] MEDS: dexAMETHasone 6 MG in SYRINGE 0 ML IV SCH (08:47)
[2021-02-17] MEDS: cefTRIAXone SODIUM 2,000 MG in DEXTROSE 5% 50 ML IV SCH (20:49)
[2021-02-17] MEDS: REMDESIVIR 100 MG in SODIUM CHLORIDE 0.9% 230 ML IV SCH (20:49)
--- NOTE | 2021-02-17 20:50 | Hospitalist Progress Note ---
Date of Service February 17, 2021 Assessment & Plan (1) Pneumonia due to COVID-19 virus: Plan: improving nicely weaning his NC O2 exam stable Day #4 IV dexamethasone 6mg. Day #4 Remdesivir. Cont incentive addis, flutter valve, mucinex, and self-proning. He is about 1 week to 10 days into his illness. O2 to maintain sats >92%. (2) Acute respiratory failure with hypoxia: Plan: 2nd #1. No complicating CHF. Cont lovenox for DVT proph. improving/resolving (3) Rhabdomyolysis due to COVID-19: Plan: mild. CPK >1000 yesterday, now in the 600s s/p IV fluids overnight. stop fluids. repeat CPK in 48 hours. (4) UTI (urinary tract infection): Plan: culture negative. however, given his symptoms & severe urinary retention there is definitely a UTI - likely prostatitis. changed prazosin to flomax. cont rand. needs AQUILES - will perform tomorrow. cont rocephin -- consider changing to PO keflex tomorrow. check a PSA baseline. (5) Asthma: Plan: no significant wheezing at this time no exacerbation (6) HTN (hypertension): Plan: cont home meds stable (7) HLD (hyperlipidemia): Plan: cont statin - CPK mildly high but improved/stable ast/alt acceptable (8) Anxiety: Plan: cont home meds (9) Dysuria: Plan: improved s/p rand can stop pyridium since rand is in place (10) DVT prophylaxis: Plan: lovenox 40mg BID Plan: progressing Admission and Anticipated Discharge Date Admission Date: February 14, 2021 Subjective feeling much better eating is good no abd discomforts breathing comfortable during the visit he was on 3 L NC -- dropped him to 2 L NC and O2 sats remained mid-90s minimal cough denies CARDENAS no other new complaints tele wnl Review of Systems Review of Systems: gen - no fevers or chills, some fatigue CV - no chest pain pulm - symptoms all resolving GI - no abd pain; diarrhea resolved Physical Exam Physical Exam: gen - looks much better, NAD mouth - MMM neck - no JVD heart - RRR, s1 s2, no murmur lungs - mild rales b/l bases but good airation abd - soft, NT, ND, BS+, liver/spleen may be palpable ext - no edema, pulses 2+ b/l psych - a/o x 3, normal affect Results & Data Results & Data ([facility]) Vital Signs (Past 12 Hours) Vital Signs Temp Pulse Resp BP Pulse Ox 02/17/21 19:00 36.7 C 91 H 20 139/86 97 02/17/21 16:40 36.5 C 80 18 157/95 H 93 02/17/21 12:35 36.9 C 85 20 153/88 H 91 Laboratory Results Laboratory Results - last 24 hr 02/17/21 06:28 Sodium 141 Potassium 3.6 Chloride 107 Carbon Dioxide 28 Anion Gap 6.0 BUN 11 Creatinine 0.87 Est Cr Clr Drug Dosing 136.1 Est GFR ( Amer) 119.1 Est GFR (Non-Af Amer) 102.8 BUN/Creatinine Ratio 12.3 Glucose 116 H Calcium 7.9 L Magnesium 2.6 H AST 39 H ALT 60 Total Creatine Kinase 612 H PG Care Time/CCT Total # of Minutes Spent Total Time Spent with Patient: Total time spent is greater than 50% in coordination of care (as documented) at patient's floor/unit and/or counseling patient: Coding Level of Care Code 46985 Subseq Hosp Care Lvl 2 Diagnoses Pneumonia due to COVID-19 virus U07.1; J12.82 Acute respiratory failure with hypoxia J96.01 Rhabdomyolysis due to COVID-19 U07.1; M62.82 UTI (urinary tract infection) N39.0 Asthma J45.909 HTN (hypertension) I10 HLD (hyperlipidemia) E78.5 Anxiety F41.9 Dysuria R30.0 DVT prophylaxis Z29.9
[2021-02-17] MEDS: MIRTAZAPINE TAB 15 MG TAB PO SCH (20:56)
[2021-02-17] MEDS: ATORVASTATIN 10 MG TAB PO SCH (20:57)
[2021-02-17] MEDS: TAMSULOSIN HCL 0.4 MG CAP PO SCH (20:57)
[2021-02-17] MEDS: diphenhydrAMINE Capsule 25 MG CAP PO SCH (20:57)
[2021-02-17] MEDS: buPROPion HCl 75 MG TABLET PO SCH (20:57)
[2021-02-17] MEDS: haloperidoL 1 MG TAB PO SCH (20:57)
[2021-02-17] MEDS: SODIUM CHLORIDE 0.9% 10ML FLUSH IV SCH (20:58)
[2021-02-18] MEDS: ENOXAPARIN INJ 40 MG/0.4 ML SYR SQ SCH ×2 (08:14→22:02)
[2021-02-18] MEDS: guaiFENesin 600 MG TABCR PO SCH ×2 (08:15→22:00)
[2021-02-18] MEDS: POTASSIUM CHLORIDE CRTAB 20 MEQ TABCR PO SCH ×3 (08:15→22:01)
[2021-02-18] MEDS: amLODIPine BESYLATE 5 MG TAB PO SCH (08:16)
[2021-02-18 08:35] LABS: BUN Creatinine Ratio 12.3 (10-20); Calcium 8.2 mg/dl (8.5-10.1); Creatinine Clr Calc Pharmacy 139.7 ml/min; Est GFR (African American) 120.3 ml/min; Est GFR (Non-African American) 103.8 ml/min
[2021-02-18 08:40] LABS: Prostate Specific Antigen 6.35 ng/ml (0-4)
[2021-02-18] MEDS: dexAMETHasone 6 MG in SYRINGE 0 ML IV SCH (09:29)
[2021-02-18] MEDS: cephALEXin 500 MG CAP PO SCH ×2 (12:44→22:01)
--- NOTE | 2021-02-18 20:44 | Hospitalist Progress Note ---
Date of Service February 18, 2021 Assessment & Plan (1) Pneumonia due to COVID-19 virus: Plan: improving exam stable weaning O2 (2 L intermittently needed) Day #5 IV dexamethasone 6mg. Day #5 Remdesivir. Cont incentive addis, flutter valve, mucinex, and self-proning. He is about 10 days into his illness. (2) Acute respiratory failure with hypoxia: Plan: 2nd #1. No complicating CHF. Cont lovenox for DVT proph. improving/resolving (3) Rhabdomyolysis due to COVID-19: Plan: mild. just about resolved. (4) UTI (urinary tract infection): Plan: culture negative. however, given his symptoms & severe urinary retention there is definitely a UTI/acute prostatitis. changed prazosin to flomax. cont rand. stop rocephin -- changing to PO keflex 500 BID. will need 4 weeks of Rx for prostatitis and urology f/u. psa elevation likely from prostatitis. (5) Asthma: Plan: no significant wheezing at this time no exacerbation (6) HTN (hypertension): Plan: cont home meds stable (7) HLD (hyperlipidemia): Plan: cont statin cpk nearly nl ast/alt acceptable (8) Anxiety: Plan: cont home meds (9) Dysuria: Plan: resolved (10) DVT prophylaxis: Plan: lovenox 40mg BID (11) Elevated PSA: Plan: as above (12) Prostatitis, acute: Plan: as above Plan: progressing back to [facility] next 1-2 days Admission and Anticipated Discharge Date Admission Date: February 14, 2021 Subjective "I feel good" only complaint is weakness/fatigue minimal cough mild CARDENAS eating well making good urine tele nl overnight Review of Systems Review of Systems: gen - no fevers, no chills CV - no chest pain pulm - no hemoptysis GI - no pain; no N/V; no further diarrhea Physical Exam Physical Exam: gen - looks good, NAD mouth - MMM neck - no JVD heart - RRR, s1 s2, no murmur lungs - mild rales b/l bases but good airation abd - soft, NT, ND, BS+ AQUILES - prostate enlarged, boggy, mild tenderness; no nodules ext - no edema, pulses 2+ b/l psych - a/o x 3, normal affect Results & Data Results & Data ([facility]) Vital Signs (Past 12 Hours) Vital Signs Temp Pulse Pulse Resp BP Pulse Ox 02/18/21 19:00 36.6 C 76 20 141/84 H 96 02/18/21 17:09 80 02/18/21 16:00 36.8 C 82 14 134/82 94 02/18/21 13:06 36.6 C 81 149/84 H 92 Laboratory Results Laboratory Results - last 24 hr 02/18/21 07:54 Sodium 141 Potassium 4.0 Chloride 109 H Carbon Dioxide 25 Anion Gap 7.0 BUN 10 Creatinine 0.85 Est Cr Clr Drug Dosing 139.7 Est GFR ( Amer) 120.3 Est GFR (Non-Af Amer) 103.8 BUN/Creatinine Ratio 12.3 Glucose 119 H Calcium 8.2 L AST 39 H ALT 73 Total Creatine Kinase 321 H Prostate Specific Ag 6.350 H PG Care Time/CCT Total # of Minutes Spent Total Time Spent with Patient: Total time spent is greater than 50% in coordination of care (as documented) at patient's floor/unit and/or counseling patient: Coding Level of Care Code 72440 Subseq Hosp Care Lvl 3 Diagnoses Pneumonia due to COVID-19 virus U07.1; J12.82 Acute respiratory failure with hypoxia J96.01 Rhabdomyolysis due to COVID-19 U07.1; M62.82 UTI (urinary tract infection) N39.0 Asthma J45.909 HTN (hypertension) I10 HLD (hyperlipidemia) E78.5 Anxiety F41.9 Dysuria R30.0 DVT prophylaxis Z29.9 Elevated PSA R97.20 Prostatitis, acute N41.0
[2021-02-18] MEDS: buPROPion HCl 75 MG TABLET PO SCH (22:00)
[2021-02-18] MEDS: ATORVASTATIN 10 MG TAB PO SCH (22:00)
[2021-02-18] MEDS: diphenhydrAMINE Capsule 25 MG CAP PO SCH (22:00)
[2021-02-18] MEDS: haloperidoL 1 MG TAB PO SCH (22:00)
[2021-02-18] MEDS: MIRTAZAPINE TAB 15 MG TAB PO SCH (22:00)
[2021-02-18] MEDS: TAMSULOSIN HCL 0.4 MG CAP PO SCH (22:00)
[2021-02-18] MEDS: REMDESIVIR 100 MG in SODIUM CHLORIDE 0.9% 230 ML IV SCH (22:02)
[2021-02-18] MEDS: SODIUM CHLORIDE 0.9% 10ML FLUSH IV SCH (22:03)
[2021-02-19] MEDS: ENOXAPARIN INJ 40 MG/0.4 ML SYR SQ SCH ×2 (08:40→20:34)
[2021-02-19] MEDS: cephALEXin 500 MG CAP PO SCH ×2 (08:41→20:34)
[2021-02-19] MEDS: guaiFENesin 600 MG TABCR PO SCH ×2 (08:41→20:34)
[2021-02-19] MEDS: amLODIPine BESYLATE 5 MG TAB PO SCH (08:42)
[2021-02-19] MEDS: dexAMETHasone 6 MG in SYRINGE 0 ML IV SCH (09:26)
--- NOTE | 2021-02-19 10:51 | XRay Report ---
SINGLE VIEW CHEST CLINICAL HISTORY: Covid pneumonia. FINDINGS: 2 AP, portable, upright chest radiographs are compared to study dated 02/14/2021. The cardi omediastinal silhouette is unremarkable. Mild patchy airspace consolidation is unchanged to minimally worsened as compared to 02/14/2021. No large pleural effusion or pneumothorax is seen. The bony thor ax is grossly intact. IMPRESSION: Mild multifocal airspace consolidation is unchanged to minimally worsened as compared to 02/14/2021. Continued follow-up to resolution is recommended. ACT 112: Negative or not required by law. Electronically signed by: Wilfredo Beckman M.D. 02/19/2021 10:50 AM
[2021-02-19] MEDS: ATORVASTATIN 10 MG TAB PO SCH (20:34)
[2021-02-19] MEDS: diphenhydrAMINE Capsule 25 MG CAP PO SCH (20:34)
[2021-02-19] MEDS: haloperidoL 1 MG TAB PO SCH (20:34)
[2021-02-19] MEDS: buPROPion HCl 75 MG TABLET PO SCH (20:34)
[2021-02-19] MEDS: MIRTAZAPINE TAB 15 MG TAB PO SCH (20:34)
[2021-02-19] MEDS: TAMSULOSIN HCL 0.4 MG CAP PO SCH (20:34)
--- NOTE | 2021-02-19 22:14 | Hospitalist Progress Note ---
Date of Service February 19, 2021 Assessment & Plan (1) Pneumonia due to COVID-19 virus: Plan: improving exam stable weaning O2 (2-4 L needed) Day #6 IV dexamethasone 6mg. Completed 5-day course of Remdesivir. Cont incentive addis, flutter valve, mucinex, and self-proning. He is about 11 days into his illness. He appears to have entered the recovery phase. (2) Acute respiratory failure with hypoxia: Plan: 2nd #1. No complicating CHF. No complicating bacterial superinfection. Cont lovenox for DVT proph. Cont to wean NC O2. (3) Rhabdomyolysis due to COVID-19: Plan: resolved (4) UTI (urinary tract infection): Plan: culture negative. however, given his symptoms & severe urinary retention there is definitely a UTI/acute prostatitis. changed prazosin to flomax. cont rand. received rocephin early on -- changed to PO keflex 500 BID. will need 4 weeks of Rx for prostatitis and urology f/u. psa elevation likely from prostatitis. (5) Asthma: Plan: no significant wheezing at this time no exacerbation (6) HTN (hypertension): Plan: cont home meds stable (7) HLD (hyperlipidemia): Plan: cont statin cpk had normalized ast/alt acceptable (8) Anxiety: Plan: cont home meds (9) Dysuria: Plan: resolved (10) DVT prophylaxis: Plan: lovenox 40mg BID would advise low-dose xarelto 10mg daily x 30 days post d/c for VTE prophy (11) Elevated PSA: Plan: as above (12) Prostatitis, acute: Plan: as above Plan: progressing back to [facility] next 1-2 days once NC O2 requirement is about 2 L Admission and Anticipated Discharge Date Admission Date: February 14, 2021 Subjective tele overnight wnl pt has no complaints eating well only CARDENAS minimal cough no urinary or GI complaints remains on 4 L NC O2 mainly because of desaturation with walking Review of Systems Review of Systems: gen - no fevers or chills CV - no cp or orthopnea; able to prone easily pulm - no hemoptysis since early in the week GI - no diarrhea or vomiting Physical Exam Physical Exam: gen - NAD mouth - MMM neck - no JVD heart - RRR, s1 s2, no murmur lungs - mild rales b/l bases; no wheeze abd - soft, NT, ND, BS+ ext - no edema, pulses 2+ b/l Results & Data Results & Data ([facility]) Vital Signs (Past 12 Hours) Vital Signs Temp Pulse Resp BP BP Pulse Ox 02/19/21 19:18 36.6 C 83 20 140/83 96 02/19/21 15:53 36.6 C 82 22 123/81 95 02/19/21 12:06 36.6 C 74 20 133/57 L 93 PG Care Time/CCT Total # of Minutes Spent Total Time Spent with Patient: Total time spent is greater than 50% in coordination of care (as documented) at patient's floor/unit and/or counseling patient: Coding Level of Care Code 55539 Subseq Hosp Care Lvl 2 Diagnoses Pneumonia due to COVID-19 virus U07.1; J12.82 Acute respiratory failure with hypoxia J96.01 Rhabdomyolysis due to COVID-19 U07.1; M62.82 UTI (urinary tract infection) N39.0 Asthma J45.909 HTN (hypertension) I10 HLD (hyperlipidemia) E78.5 Anxiety F41.9 Dysuria R30.0 DVT prophylaxis Z29.9 Elevated PSA R97.20 Prostatitis, acute N41.0
[2021-02-20] MEDS: ENOXAPARIN INJ 40 MG/0.4 ML SYR SQ SCH ×2 (09:16→21:07)
[2021-02-20] MEDS: guaiFENesin 600 MG TABCR PO SCH ×2 (09:16→21:07)
[2021-02-20] MEDS: amLODIPine BESYLATE 5 MG TAB PO SCH (09:17)
[2021-02-20] MEDS: cephALEXin 500 MG CAP PO SCH ×2 (09:18→21:08)
[2021-02-20] MEDS: dexAMETHasone 6 MG in SYRINGE 0 ML IV SCH (09:19)
[2021-02-20 09:43] LABS: BUN Creatinine Ratio 14.8 (10-20); Calcium 8.8 mg/dl (8.5-10.1); Creatinine Clr Calc Pharmacy 136.9 ml/min; Est GFR (African American) 119.7 ml/min; Est GFR (Non-African American) 103.3 ml/min; Potassium 3.7 mmol/L (3.5-5.1)
[2021-02-20] MEDS: diphenhydrAMINE Capsule 25 MG CAP PO SCH (21:07)
[2021-02-20] MEDS: MIRTAZAPINE TAB 15 MG TAB PO SCH (21:08)
[2021-02-20] MEDS: ATORVASTATIN 10 MG TAB PO SCH (21:08)
[2021-02-20] MEDS: TAMSULOSIN HCL 0.4 MG CAP PO SCH (21:08)
[2021-02-20] MEDS: haloperidoL 1 MG TAB PO SCH (21:08)
[2021-02-20] MEDS: buPROPion HCl 75 MG TABLET PO SCH (21:08)
[2021-02-21 06:41] LABS: Hematocrit (blood only) 41.7 % (42-52); Hemoglobin 14.1 g/dL (14.0-18.0); Mean Corpuscular Hemoglobin 29.6 pg (25-34); Mean Corpuscular Hgb Conc 33.8 g/dL (32-36); Mean Corpuscular Volume 87.6 fL (80-100); Mean Platelet Volume 9.1 fL (7.4-10.4); Platelet Count 455 K/uL (130-400); RDW Coefficient of Variation 13.1 % (11.5-14.5); RDW Standard Deviation 41.5 fL (36.4-46.3); Red Blood Count 4.76 M/uL (4.7-6.1); White Blood Count 7.21 K/uL (4.8-10.8)
[2021-02-21 07:01] LABS: Basophils # (auto) 0.02 K/uL (0-0.2); Basophils % (auto) 0.3 %; Eosinophils # (auto) 0.03 K/uL (0-0.5); Eosinophils % (auto) 0.4 %; Immature Granulocytes # (auto) 0.44 K/uL (0.00-0.02); Immature Granulocytes % (auto) 6.1 %; Lymphocytes # (auto) 0.97 K/uL (1.2-3.4); Lymphocytes % (auto) 13.5 %; Monocytes # (auto) 0.67 K/uL (0.11-0.59); Monocytes % (auto) 9.3 %; Neutrophils # (auto) 5.08 K/uL (1.4-6.5); Neutrophils % (auto) 70.4 %
[2021-02-21 07:02] LABS: D Dimer 280 ug/L FEU (0-500)
[2021-02-21] MEDS: amLODIPine BESYLATE 5 MG TAB PO SCH (09:29)
[2021-02-21] MEDS: guaiFENesin 600 MG TABCR PO SCH (09:29)
[2021-02-21] MEDS: ENOXAPARIN INJ 40 MG/0.4 ML SYR SQ SCH (09:29)
[2021-02-21] MEDS: cephALEXin 500 MG CAP PO SCH (09:30)
[2021-02-21] MEDS: dexAMETHasone 6 MG in SYRINGE 0 ML IV SCH (09:35)
--- NOTE | 2021-02-21 12:12 | Discharge Summary ---
Date of Service February 21, 2021 Admission HPI Per Admitting Provider 45-year-old male who presents with cough, body aches, shortness of breath for 1 week. Positive for Covid 6 days ago. Satting 90% on room air. Underlying diagnosis of asthma. First Covid symptoms 6 days ago. Endorses SoB. No chest pain or chest pressure. Lost sense of taste and smell then got it back 2-3 days ago. Hx of asthma, uses albuterol PRN rarely, needed in the last week. Progressively more dyspneic over the last 3 to 4 days. Denies chest pain, chest pressure, palpitations, fever, chills, syncope, presyncope. Denies abdominal pain. Endorses dysuria and a feeling of having to press very hard to urinate in the last few days. Denies hematuria. No history of blood clots. Medications reviewed as below. Medical History: Reviewed Medications: Reviewed. HTN, not sure of meds. HLD not sure of meds. +Psych meds (haldol, wellbutrin, minipress). Surgical History: Reviewed Allergies: Reviewed Social History: No tobacco product use, no etoh, no rec drug use. Code Status: Discharge Exam gen - NAD mouth - MMM neck - no JVD heart - RRR, s1 s2, no murmur lungs - mild rales b/l bases; no wheeze abd - soft, NT, ND, BS+ ext - no edema, pulses 2+ b/l Discharge Data Allergies Allergy/AdvReac Type Severity Reaction Status Date / Time No Known Allergies Allergy Unverified 02/14/21 16:09 Consultations 02/14/21 15:25 ED Decision to Admit Stat Hospital Course (1) Pneumonia due to COVID-19 virus: improving exam stable weaning O2 (2-4 L needed) Day #6 IV dexamethasone 6mg. Completed 5-day course of Remdesivir. Cont incentive addis, flutter valve, mucinex, and self-proning. He is about 11 days into his illness. He appears to have entered the recovery phase. (2) Acute respiratory failure with hypoxia: 2nd #1. No complicating CHF. No complicating bacterial superinfection. Cont lovenox for DVT proph. Cont to wean [place] O2. (3) Rhabdomyolysis due to COVID-19: resolved (4) UTI (urinary tract infection): culture negative. however, given his symptoms & severe urinary retention there is definitely a UTI/acute prostatitis. changed prazosin to flomax. cont rand. received rocephin early on -- changed to PO keflex 500 BID. will need 4 weeks of Rx for prostatitis and urology f/u. psa elevation likely from prostatitis. (5) Asthma: no significant wheezing at this time no exacerbation (6) HTN (hypertension): cont home meds stable (7) HLD (hyperlipidemia): cont statin cpk had normalized ast/alt acceptable (8) Anxiety: cont home meds (9) DVT prophylaxis: lovenox 40mg BID would advise low-dose xarelto 10mg daily x 30 days post d/c for VTE prophy (10) Elevated PSA: as above (11) Prostatitis, acute: as above progressing back to residential next 1-2 days once [place] O2 requirement is about 2 L Discharge Plan Discharge Items [facility] Reason For Visit: COVID-19 PNEUMONIA Discharge Diagnosis: 1. RESOLVING COVID-19 Pneumonia 2. Acute hypoxic respiratory failure 2nd to #1 - pulmonary follow-up advised in 1 month 3. Rhabdomyolysis 2nd to COVID-19 - resolved 4. BPH 5. UTI with Acute Prostatitis 6. Elevated PSA - 6.3 - likely due to #5, but needs follow-up with urology 7. Asthma 8. Elevated AST - 2nd to COVID-19 infection Activity: As commented below Activity Comment: gradually increase activities over the next 1-2 weeks Non-emergency contact: Primary Care Provider, Project Geophysicist and Urologist Call non-emergency contact if: you have any medication questions and your symptoms worsen Follow-up/Referrals: Constantino ESCOBEDO [Primary Care Provider] - Diet: Regular Addtl Attending Provider Instructions: Mr Guidry was treated for the problems listed above in "discharge diagnoses." Recommendations - 1. oxygen - * 2 liters at rest and with sleep * 4 liters with activity 2. follow-ups - * establish care with a polymer engineer in about 1 month for severe COVID-19 pneumonia * establish care with a urologist in 2-3 weeks for BPH, prostatitis, and elevated PSA 3. rand was placed on the evening of 02/15/21. Remove rand in 5-7 days and perform spontaneous voiding trial then. 4. patient is about 13-14 days into his illness. He is likely not contagious at this time but defer to residential protocols regarding isolation needs upon return to [facility] 5. xarelto 10mg PO daily x 30 days for DVT prophylaxis, first dose on 02/22/21. 6. CBC, CMP in 5-7 days for stability and to check normalization of liver tests. Pending Studies at Discharge: No Stand-Alone Forms: My [facility] Skilled Items Patient informed of condition?: Yes Discharge Level of Care: Other Communicable Disease: Yes Discharge Prognosis: Stable Lines: None Urinary Catheter: Yes Medications and DC Order Prescriptions: New tamsulosin 0.4 mg Capsule 0.4 mg PO HS Qty: 30 RF: 5 cephalexin 500 mg Capsule 500 mg PO BID 21 Days Qty: 42 RF: 0 Xarelto 10 mg tablet 10 mg PO DAILY 30 Days Qty: 30 RF: 0 dexamethasone 6 mg tablet 6 mg PO DAILY 2 Days Qty: 2 RF: 0 albuterol sulfate 90 mcg/actuation HFA aerosol inhaler 2 inh inhalation Q4H PRN (Reason: shortness of breath or wheezing) Qty: 6.7 RF: 0 (DME) Oxygen Home Liters Per Minute See Rx Instructions .ROUTE .MEDSUPPLY Qty: 1 RF: 0 Saccharomyces boulardii 250 mg capsule 250 mg PO DAILY 20 Days Qty: 20 RF: 0 Mucinex 1,200 mg tablet extended release 12hr 1,200 mg PO BID PRN (Reason: cough) Qty: 30 RF: 0 Continued cholecalciferol (vitamin D3) [Vitamin D3] 25 mcg (1,000 unit) Tablet 25 mcg PO DAILY RF: 0 zinc 220 mg PO BID RF: 0 diphenhydramine HCl 25 mg Capsule 25 mg PO HS RF: 0 atorvastatin 10 mg Tablet 10 mg PO HS RF: 0 amlodipine 10 mg Tablet 10 mg PO DAILY RF: 0 mirtazapine 30 mg Tablet 30 mg PO HS RF: 0 bupropion HCl 75 mg Tablet 150 mg PO HS RF: 0 haloperidol [Haldol] 2 mg Tablet 2 mg PO HS RF: 0 Discontinued diphenhydramine HCl 50 mg Capsule 50 mg PO HS RF: 0 prazosin 1 mg Capsule 3 mg PO HS RF: 0 Discharge Orders: Discharge Order (Routine); Ordered 02/21/21 Ordered By: Wojciech Iglesias Admission Data Admit Date/Time: 02/14/21 18:36 Attending Provider: Wojciech Iglesias Admit Provider: Thai Godfrey Primary Care Provider: Constantino ESCOBEDO Other Providers: Wojciech Iglesias Coding Diagnoses Pneumonia due to COVID-19 virus U07.1; J12.82 Acute respiratory failure with hypoxia J96.01 Rhabdomyolysis due to COVID-19 U07.1; M62.82 UTI (urinary tract infection) N39.0 Asthma J45.909 HTN (hypertension) I10 HLD (hyperlipidemia) E78.5 Anxiety F41.9 DVT prophylaxis Z29.9 Elevated PSA R97.20 Prostatitis, acute N41.0
[2021-02-21] MEDS ORDERED: RIVAROXABAN 10 MG TABLET PO SCH (13:15)
[2021-02-21] MEDS ORDERED: cephALEXin 500 MG CAP PO SCH ×2 (13:15→21:00)
[2021-02-22] MEDS ORDERED: RIVAROXABAN 10 MG TABLET PO SCH (09:00)
== END 2021-02-21 14:00 | DRG 177 ==
LOC: ED 10:39 → SUATTDRO 18:36 → 2S 18:36